=== PATIENT | female | born 1995 | race Caucasian/White ===

== ENCOUNTER → 2020-12-31 09:51 | Outpatient (CLI) | payer OTHER, SELFPAY ==
--- NOTE | 2020-12-31 10:03 | RAD_ITS ---
PROCEDURE: Upper GI with Small Bowel Follow Through DATE OF EXAMINATION: 12/31/2020. INDICATION: Female, 25 years old. Dyspepsia. Altered bowel function. FLUOROSCOPY TIME (if supplied): (1:54) minutes/seconds TECHNIQUE: Radiographic and fluoroscopic images of the distal esophagus, stomach, and entire small intestine were obtained following the oral ingestion of barium. COMPARISON: None. FINDINGS: The architectural administrative assistant film of the abdomen demonstrates a normal bowel gas pattern. There are no abnormal calcifications or organomegaly demonstrated. The visualized osseous structures are normal. A single contrast small bowel follow through exam demonstrates the small bowel to have no evidence for stricture, ulceration or mass. The transit time is normal at . RAD/Upper GI/w Small Bowel IMPRESSION: 1. Normal air contrast small bowel follow-through exam. Electronically Signed: Niraj Awan MD at 15:56 EDT , Service support ,
== END ==
PROVIDERS: PCP Internal Medicine; Referring Provider Nurse Practitioner Adult Health; Visit Provider Nurse Practitioner Adult Health
DX: R10.13 Epigastric pain (principal); R19.8 Other specified symptoms and signs involving the digestive system and abdomen
CPT/HCPCS: 74246; 74248

== ENCOUNTER 2024-12-27 08:00 | Outpatient (RCR) | payer OTHER, SELFPAY ==
--- NOTE | 2024-12-27 09:00 | BH.SGPN.GN ---
Behaviors/Verbalizations/Mental Status: [] Eye contact is good. Motor activity is appropriate. Appearance is casual. Speech is Appropriate. Mood is anxious. Affect is constricted. Thoughts are linear and logical. No evidence of psychosis. Reviewed daily check in sheet and no reports of suicidal ideations or intent. Client Response/Progress/Benefit: [] Pt first day of IOP tx, she was an active participant in group discussions. Attentive. Daily symptom tracker notes 2/5 for depression and 4/5 for anxiety. Did well to identify 2 mental health wins including being back home last night and out of the inpatient psych unit. Did not elaborate further on what led to hospitalization or seeking IOP tx. Pt identified an additional win as getting a good night?s sleep, explaining that she had difficulties sleeping while inpatient. Shared beliefs that lack of sleep may be contributing some to heightened levels of anxiety which is a current stressor. Benefited from group support, encouragement, and feedback. Will continue in IOP to prevent decompensation/re-admission to psych, promote mood stability, and increase healthy coping. Narrative Note: []
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
--- NOTE | 2024-12-27 11:10 | BH.SGPN.GN ---
Behaviors/Verbalizations/Mental Status: []Pt alert and oriented, casually dressed and groomed. Eye contact fair. Motor activity appropriate. Speech within normal limits. Affect congruent, mood euthymic. Thoughts linear, logical, no signs of hallucinations or delusions. Client Response/Progress/Benefit: [] Pt was an active participant AEB pt providing input and listening attentively to peers. Attentive during psychoeducation on mindfulness coping skills and their impact on reducing anxiety and improving overall mental health wellness. Group was able to identify self-soothing and mind-based coping skills which included: 5-senses, meditation, deep breathing, TIPP, thought challenging, categories, and progressive muscle relaxation. Pt also participated with peers in practicing mindfulness skills in session including deep breathing. Pt would like to work on belly breathing to manage anxiety. Appeared to benefit from increasing repertoire of anxiety reduction skills. Pt will continue IOP to improve daily functioning, increase healthy coping skills, and prevent decompensation.
[2024-12-27 11:39] VITALS: BP 122/72; PULSE 68
--- NOTE | 2024-12-27 12:10 | BH.MDN_ITS ---
Multi-Disciplinary Note Note 60-min Individual: Time Started:: 12:10 Date: 12/27/24 Purpose of session/treatment goals addressed:: Used the session to identify treatment plan goals and obtain psychosocial hx. Eye Contact:: Good Motor Activity:: Appropriate Appearance:: Casual Speech:: Appropriate Mood:: Anxious Affect:: Congruent Thoughts:: Linear, Logical and No evidence of hallucinations/delusions noted Staff Interventions:: rapport building, treatment planning and goal setting Client Response:: Pt states that while her first day in IOP was anxiety provoking overall she felt it went well. States it was what I expected and reports feeling more comfortable than she had this morning. Pt reports extensive hx of therapy. She has been with the same psychologist (Dr. Mcpherson) since age 15 whom she began seeing due to Bulimia. She is very knowledgeable about mental health diagnoses reporting possibly having mild autism, underlying trauma, ADHD, LAURI, and MDD. Also reports issues with sensory overload, hyperlexia, and experiencing very intense emotions. I get stuck in my emotions which can impact her for days and weeks. When asked about goals she states I want to better regulate my emotions and help identify when depression is creeping back in. Refer to pre-admission assessment, psychosocial, and psych eval for events that led to admission. Pt was admitted to psychiatric facility last week and discharged yesterday. Reports SI with plan and intent on 12/11/24 due in large part to psychosocial stressors. Currently reports moderate depression stating that she is getting back to her old self. Believes that admission was beneficial. Risks/Concerns:: Daily symptom tracker notes no suicidal ideations, plan, or intent. Hx of SI with plan/intent, however no hx of suicide attempts. Hx of self-injurious behaviors. Progress Toward Goals/Plan:: No progress noted as this was her first day in IOP. This is her second day out of psych unit. Presents today with somewhat of a flight into recovery reporting that she happy, has minimal depression, and is her old self despite still dealing with relationship conflict and psychosocial stressors which led to SI and hospitalization. Will continue to monitor daily symptom tracker for SI. Completed [place] [facility] Scre[facility] this AM. Reports last SI was on 12/11/24. Will be admitted to [facility] level of care to maintain safety, prevent decompensation, and improve functioning to return to work. Time Stopped:: 13:00
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
--- NOTE | 2024-12-27 13:05 | BH.DR.ITP ---
Initial Treatment Plan Patient Information Visit Information: ADMISSION DATE: EXPECTED LOS: 4-6 weeks Problems/Symptoms Problem #1:: Depression Symptom:: Sadness, hopelessness, worthlessness, guilt, low energy, passive thoughts of , recent suicidal ideation and self-harm. Problem #2:: Anxiety Symptom:: Worry, rumination, panic attacks
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
--- NOTE | 2024-12-27 16:36 | BH.MTP ---
Master Treatment Plan Patient Information Program Physician:: Mirna Doshi Primary Therapist:: Francois Garza Psychiatric Diagnoses Psychiatric Diagnoses:: 1. Major depressive disorder, recurrent, severe without psychosis 2. Generalized anxiety disorder Diagnosis Code(s):: F33.2 Estimated LOS Estimated LOS (in weeks):: 8 Problem/Goal #1 Problem/Goal #1 Stated Goal:: Client will reduce depressive symptoms, worthlessness, lack of concentration, suicidal ideations, survival ambivalence, self-harm, and hopelessness associated with major depressive disorder AEB self-report as well as reduction of scores on the DSM-5 domain scores for SI and depression. Description of Barriers: Psychosocial stressors, complicated current relationship with GF, mood instability for 3 years, limited coping strategies. Functional Impact: Recent psychiatric admission due to SI with methods, currently off work due to mental health, self-injurious behaviors, Goal Relevant Strengths/Supports: outgoing, strong family support, optimistic, and appears motivated. Objectives Objective #1: Stated Objective: Client will work with therapist to develop a concrete ?crisis plan? or emotional dysregulation plan to implement during depressive episodes or acute events which includes emergency telephone numbers, internal/external coping strategies for SI/overwhelming emotions, lists of supports, warning signs, positive aspects of life, and motivations Interventions: Client will work with therapist to develop a ?crisis plan? or emotional dysregulation plan which includes emergency telephone numbers, internal/external coping strategies for SI/overwhelming emotions, lists of supports, warning signs, positive aspects of life, and motivations Discharge Criteria: Complete emotional dysregulation plan. Target Date: 02/21/25 Review Date: 01/17/25 Objective #2: Stated Objective: Client will identify 2-3 cognitive distortions that lead to mood dysregulation and learn 2-3 ways to manage these thoughts to improve mood stability. Interventions: Through individual and group counseling will assist client in identifying, challenging, and replacing dysfunctional thoughts with positive, more realistic thoughts. Will provide education on CBT and DBT techniques to help client gain awareness of thinking errors and learn how to more effectively handle negative thoughts that reinforce unhealthy coping skills. Discharge Criteria: Able to identify and challenge commonly used cognitive distortions. Target Date: 02/21/25 Review Date: 01/17/25 Problem/Goal #2 Problem/Goal #2 Stated Goal:: Client will reduce overall frequency, intensity, and duration of anxiety to improve functioning AEB self-reports and reduction of score on the anxiety and anger domains of the DSM outcomes. Description of Barriers: Psychosocial stressors, complicated current relationship with GF, mood instability for 3 years, limited coping strategies, unmedicated ADHD, possible mild Autism, hx of trauma. Functional Impact: Recent psychiatric admission due to mental health decompensation, frequent panic attacks, ruminations, Goal Relevant Strengths/Supports: outgoing, strong family support, optimistic, and appears motivated. Objectives Objective #1: Stated Objective: Client will identify 2-3 anxiety/panic triggers and 2 coping skills to use when feeling anxious to manage anxiety as shown by decreasing her DSM-5 scores for anxiety. Interventions: Through individual and group counseling will teach client coping skills to improve emotional regulation, mindfulness, and distress tolerance to help client cope with anxiety in the moment. Discharge Criteria: Identify 2-3 triggers and 2-3 coping strategies to manage panic attacks/anxiety. Target Date: 02/21/25 Review Date: 01/17/25
--- NOTE | 2024-12-28 09:05 | BH.SGPN.GN ---
Behaviors/Verbalizations/Mental Status: [] Pt alert and oriented, neatly dressed and groomed. Eye contact good. Motor activity appropriate. Speech within normal limits. Affect congruent, mood anxious. Thoughts linear, logical, no signs of hallucinations or delusions. Reviewed pt?s symptom tracker, no risk for suicidal ideation, plan, or intent 12/28/24. Client Response/Progress/Benefit: []Pt was an active participant in group discussions. Attentive. Able to identify mental health wins including pt started organizing her room, helped her parents, and talked with a friend. Pt's stressor today is my dreams have been really stressful. Pt stated feeling a little less anxious this morning as pt feels getting used to group is helpful. Pt receptive to feedback from peers which pt reported was helpful. Progress noted. Benefited from group support, encouragement, and feedback. Will continue in IOP to prevent decompensation, improve daily functioning, and gain healthy coping skills. Narrative Note: []
--- NOTE | 2024-12-28 10:15 | BH.SGPN.GN ---
Behaviors/Verbalizations/Mental Status: [] Eye contact is good. Motor activity is appropriate. Appearance is casual. Speech is Appropriate. Mood is anxious and depressed. Affect is congruent. Thoughts are linear and logical. No evidence of psychosis Client Response/Progress/Benefit: [] Pt engaged in session AEB listening attentively to others and providing input throughout. Pt engaged in activity, able to connect how it can be uncomfortable and difficult to practice acceptance when situations are out of one?s own control. Worked with peer group to define acceptance and identify the benefits that acceptance can bring. Benefits included; reduce stuckness, reduced stress, helps one to focus on situations we can change, and decreased negative self-talk. Seemed to benefit from increased awareness of the meaning as well as the importance of acceptance. Will continue in IOP to prevent decompensation/re-admission to psych unit, maintain safety, increase healthy coping, and improve functioning to return to work. Narrative Note: []
--- NOTE | 2024-12-28 11:15 | BH.SGPN.GN ---
Behaviors/Verbalizations/Mental Status: []Pt alert and oriented, casually dressed and groomed. Eye contact fair. Motor activity appropriate. Speech within normal limits. Affect congruent, mood depressed and anxious. Thoughts linear, logical, no signs of hallucinations or delusions. Client Response/Progress/Benefit: [] Pt responded well to session AEB taking notes and contributing to discussion throughout. Pt engaged as group continued discussion on acceptance and the mental health benefits of practicing acceptance. Pt and peers identified what makes acceptance challenging and pt completed a self-reflection exercise on what is hard to accept in pt's life. Pt identified something that is currently hard to accept other's expectations of you. Client stated by not accepting this it leads to feeling not good enough. Group identified strategies to increase acceptance. Pt noted wanting to work on focusing on self-compassion. Pt appeared to benefit from gaining insight and learning strategies to increase acceptance. Pt will continue IOP tx to improve view of self, increase mood stability, and prevent decompensation. Narrative Note: []
--- NOTE | 2025-01-01 09:05 | BH.SGPN.GN ---
Behaviors/Verbalizations/Mental Status: [] Eye contact is good. Motor activity is appropriate. Appearance is casual. Speech is Appropriate. Mood is anxious. Affect is congruent. Thoughts are linear and logical. No evidence of psychosis. Reviewed daily check in sheet and no reports of suicidal ideations or intent. Client Response/Progress/Benefit: [] Pt participated at times during the group discussion. Attentive. Shared that she ?cooked over the weekend? Elaborated on why this was a mental health win for her. ?Cooking means that I?m in a good headspace?. Utilizing opposite-action and ?opened up with? support over the weekend. Feeling hopeful. She also shared medication side effects. ?feels wrong?. Reports increased anxiety, heart racing, and restlessness with no trigger. She decided to stop the medication. Therapist will contact program psychiatrist after group. Progress noted. Benefited from group support, encouragement, and feedback. Will continue in IOP to maintain safety, prevent re-admission to psych unit, and improve functioning to return to work. Narrative Note: []
--- NOTE | 2025-01-01 11:05 | BH.SGPN.GN ---
Behaviors/Verbalizations/Mental Status: []Eye contact is good. Motor activity is appropriate. Appearance is casual. Speech is Appropriate. Mood is anxious. Affect is congruent. Thoughts are linear and logical. No evidence of psychosis. Client Response/Progress/Benefit: []Pt was an active participant in group discussion. Engaged and attentive during psychoeducation and interactive discussion on coping skills, why people use unhealthy coping skills, how to replace unhealthy coping skills, and internal vs external coping skills. Attentive as peers came up with list of unhealthy coping skills. Pt reported personally, they tend to either isolate or over think, though often both occur. Group discussed the effects of maladaptive coping skills on mental health. Benefited from increased understanding of unhealthy coping skills and the need for developing healthy internal and external coping skills. Actively participated during experiential group activity and was able to related this activity to group topic. Will continue in IOP to promote healthy thinking patterns, apply healthy coping skills, and promote mood stability. Narrative Note: []
--- NOTE | 2025-01-01 11:15 | BH.SGPN.GN ---
Behaviors/Verbalizations/Mental Status: []Pt alert and oriented, casually dressed and groomed. Eye contact good. Motor activity appropriate. Speech within normal limits. Affect congruent, mood depressed. Thoughts linear, logical, no signs of hallucinations or delusions. Client Response/Progress/Benefit: [] Pt responded well to session, taking notes and contributing when prompted. Group discussed the different categories of coping skills which included distraction, emotional release, grounding, self-love, and thought challenging. Pt participated in creating a coping skills ?menu? from the different categories of coping skills. Pt's coping skill menu included: crying, verbally telling her negative thoughts to stop, and developing a more consistent routine. Appeared to benefit from increasing their repertoire of healthy coping skills. Will continue IOP to prevent decompensation, improve daily functioning, and reduce isolation. Narrative Note: []
--- NOTE | 2025-01-01 11:38 | BH.COMM ---
Communication Note Communication with Client Communication Note: Pt reported side effects to Wellbutrin which included heart racing, restlessness, sleep issues, and overall increased anxiety which she attributes to her Wellbutrin. I can't identify any other reasons . She reports that she made a decision over the weekend to stop taking the medication. Last use was on Wednesday. No side effects reported. According to patient she is taking Wellbutrin XL 150mg daily since 12/19/24. She has taken this for a total of 12 days. Concern due to suddenly stopping the medication and staff reached out to Dr. Doshi. Based on the dose and duration of use (12 days) Dr. Francis stated that pt could stop the medication as she wished. Encouraged her to inform staff of any mood or somatic changes.
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
--- NOTE | 2025-01-02 10:15 | BH.SGPN.GN ---
Behaviors/Verbalizations/Mental Status: [] Eye contact is good. Motor activity is appropriate. Appearance is casual. Speech is Appropriate. Mood is content. Affect is congruent. Thoughts are linear and logical. No evidence of psychosis. Client Response/Progress/Benefit: [] Pt was an active participant in group discussions. Attentive during psychoeducation on the 4 communication styles (Passive, Passive-Aggressive, Aggressive, and Assertive) and the obstacles to effective communication. Contributed during interactive discussion on the benefits of communicating effectively and provided examples. Worked well with peers to identify the benefits and disadvantages to the different communication styles. Benefited from increased understanding of communication styles and how these can impact effective communication. Will continue in IOP to prevent decompensation, improve healthy communication within current relationships, and improve daily functioning. Narrative Note: []
--- NOTE | 2025-01-02 11:15 | BH.SGPN.GN ---
Behaviors/Verbalizations/Mental Status: []Pt alert and oriented, casually dressed and groomed. Eye contact good. Motor activity appropriate. Speech within normal limits. Affect congruent, mood euthymic. Thoughts linear, logical, no signs of hallucinations or delusions. Client Response/Progress/Benefit: [] Pt responded well to session AEB Pt listening attentively to others and providing input during group discussion on the pay offs and costs of the different communication styles. Pt able to connect how current communication style impacts mental health. Connected with peers? comments about importance of using assertive communication. Pt seemed to benefit from increasing awareness of healthy strategies to improve communication. Client engaged in practicing use of assertive communication. Will continue IOP tx to promote healthy coping skills, challenge negative thoughts, and improve boundary setting.?
--- NOTE | 2025-01-03 09:00 | BH.SGPN.GN ---
Behaviors/Verbalizations/Mental Status: [] Eye contact is good. Motor activity is appropriate. Appearance is casual. Speech is Appropriate. Mood is anxious and content. Affect is congruent. Thoughts are linear and logical. No evidence of psychosis. Reviewed daily check in sheet and no reports of suicidal ideations or intent. Client Response/Progress/Benefit: [] Pt was an active participant in group discussions. Attentive. Daily symptom tracker notes 0-1/5 for depression and 1-2/5 for anxiety. Did well to identify 2 mental health wins including being able to process and express uncomfortable emotions regarding her relationship rather than minimize. Reports journaling as a result. Additional win identified as plans to discuss these emotions with her partner later today following a session with her individual therapist. Noted this is also a stressor but one she feels prepared to address. Benefited from group support, encouragement, and feedback. Will continue in IOP to prevent decompensation, promote mood stability, and increase healthy coping. Narrative Note: []
--- NOTE | 2025-01-03 10:10 | BH.SGPN.GN ---
Behaviors/Verbalizations/Mental Status: [] Client Response/Progress/Benefit: [] Narrative Note: []
--- NOTE | 2025-01-03 11:10 | BH.SGPN.GN ---
Behaviors/Verbalizations/Mental Status: []Pt alert and oriented, casually dressed and groomed. Eye contact good. Motor activity appropriate. Speech within normal limits. Affect congruent, mood content. Thoughts linear, logical, no signs of hallucinations or delusions. Client Response/Progress/Benefit: [] Pt was an active participant during activity and discussion. Pt did well to remain attentive and participate as group worked on identifying characteristics and benefits of adopting a growth mindset. Worked with fellow participants in reframing the example fixed thoughts into growth mindset thoughts. Pt worked on changing own fixed thought and reframed the thought to ?it?s possible to be fully loved through all my emotions, including by myself.? Pt also wants to work on using dialectical thinking. Pt appeared to benefit from challenging own thoughts and engaging in the activity. Pt will continue IOP tx to prevent decompensation, improve daily functioning, and reduce negative thinking patterns. ??? Narrative Note: []
--- NOTE | 2025-01-09 10:10 | BH.SGPN.GN ---
Behaviors/Verbalizations/Mental Status: [] Eye contact is good. Motor activity is appropriate. Appearance is casual. Speech is Appropriate. Mood is anxious and dysthymic. Affect is congruent. Thoughts are linear and logical. No evidence of psychosis. Client Response/Progress/Benefit: [] Pt was an active participant during group discussions and group activities. This portion of group was very psychoeducation heavy and pt was attentive during psychoeducation. Engaged during activity in which they identified which type of foods (i.e. carbs, sugar, salt, fast food, caffeine, etc) they seek out when sad, tired, angry, stressed, anxious, etc. Pt was able to identify the impact that certain foods have on their mental health through group example which was beneficial. Benefited from increased awareness of the connection between nutrition and mental health. Will continue in IOP to prevent decompensation, decrease anxiety, improve healthy coping, and improve functioning to return to work. Narrative Note: []
--- NOTE | 2025-01-09 11:15 | BH.SGPN.GN ---
Behaviors/Verbalizations/Mental Status: []Pt alert and oriented, casually dressed and groomed. Eye contact good. Motor activity appropriate. Speech within normal limits. Affect congruent, mood content. Thoughts linear, logical, no signs of hallucinations or delusions. Client Response/Progress/Benefit: [] Pt was an active participant during group discussions and group activities. This portion of group was very psychoeducation heavy and pt was attentive during psychoeducation. Engaged during activity in which they identified their own maintenance cycles with food and how it impacts their mental health symptoms. Pt and peers identified barriers to breaking these cycles as well as ways to combat barriers. Pt stated one barrier she used to have was using eating as self-soothing, so pt has worked to make ?eating the main event.? Pt shared it helps her be more mindful. Benefited from increased awareness of the connection between nutrition and mental health and from identifying strategies. Will continue in IOP to promote use of healthy coping skills, challenge distortions, and increase self-confidence. Narrative Note: []
--- NOTE | 2025-01-10 09:05 | BH.SGPN.GN ---
Behaviors/Verbalizations/Mental Status: [] Eye contact is good. Motor activity is appropriate. Appearance is casual. Speech is Appropriate. Mood is anxious. Affect is congruent. Thoughts are linear and logical. No evidence of psychosis. Reviewed daily check in sheet and no reports of suicidal ideations or intent Client Response/Progress/Benefit: [] Pt was an active participant in group discussions. Attentive. She discussed participating in a social event, utilizing skills, and being more assertive this week. Feeling ?hopeful?. Progress noted. Benefited from group support, encouragement, and feedback. Will continue in IOP to prevent decompensation/re-admission to psych unit, maintain safety, and improve functioning to return to work. Narrative Note: []
--- NOTE | 2025-01-10 10:15 | BH.SGPN.GN ---
Behaviors/Verbalizations/Mental Status: [] Eye contact is fair. Motor activity is appropriate. Appearance is disheveled. Speech is Appropriate. Mood is depressed. Affect is constricted. Thoughts are linear and logical. No evidence of psychosis. Client Response/Progress/Benefit: [] Pt was an active participant during interactive group discussions. Along with peers contributed to interactive discussion on defining what a boundary is in mental health. Pt along with peers identified challenges and benefits to setting boundaries. Attentive during psychoeducation on types of boundaries (rigid, porous, flexible). Pt benefited from increased awareness and insight on the importance/benefit to setting health boundaries. Will continue in IOP to promote use of healthy coping skills, prevent decompensation/re-admission to psych unit, and improve functioning to return to work. Narrative Note: []
--- NOTE | 2025-01-10 11:15 | BH.SGPN.GN ---
Behaviors/Verbalizations/Mental Status: [] Eye contact is good. Motor activity is appropriate. Appearance is casual. Speech is Appropriate. Mood is euthymic. Affect is congruent. Thoughts are linear and logical. No evidence of psychosis. Client Response/Progress/Benefit: [] Client responded well to session AEB listening attentively to peers, providing input, as well as taking notes throughout. Group discussed different styles of boundary setting. Reports connecting most with porous style of boundary setting. Shared she often allows others to monopolize her time and doesn't set a boundary with others. Participated in small group discussion brainstorming various strategies for improving healthy boundary setting. Pt took time to complete reflection on which skills would like to implement to improve boundaries. Seemed to benefit from increased awareness of how different boundary styles can impact mental health. Will continue IOP tx to improve confidence, challenge distortions, and prevent decompensation.
--- NOTE | 2025-01-10 12:43 | PCM.BH.PN_ITS ---
Progress Note Progress Note: History of Present Illness/Interim History: The patient is a 29-year-old female with a history of depression, anxiety, autism, ADHD and substance use disorder who is seen in follow-up at the [facility] behavioral health IOP. Patient was last seen 2 weeks ago and no medication changes were made at that time. Patient discontinued Wellbutrin XL after last visit as she had side effects on it. She feels that since discontinuing the Wellbutrin 2 weeks ago her anxiety is less and she feels better able to function during the day. She remains somewhat depressed with a little improvement but still has occasional hopelessness. She is anxious about having to go back to work again and has a m eeting with her boss on January 15, 2025 to discuss when she returns to work. She saw Dr. Burt yesterday and antidepressant was added. She denies thoughts of passive thoughts of , suicidal ideation, plan for suicide, thoughts of self-harm, hallucinations or delusions and remains sober from drug or alcohol use. Current Psychiatric Medications: [] BuSpar 5 mg p.o. twice daily; Seroquel 50 mg p.o. as needed; Wellbutrin XL discontinued 2 weeks ago due to side effects of increased anxiety. Cymbalta 30 mg p.o. daily added yesterday and she is to start it today. Mental Status Examination: [] The patient is a 29-year-old female who appears younger than stated age and is casually groomed with good hygiene. She is ambulatory with a normal gait and has no psychomotor agitation or retardation. Eye contact is good and speech is normal rate and rhythm and fluent with no pressure. Mood is depressed and anxious. Affect is full and normal. Thought process is goal-directed but overinclusive. Thought content: There is no evidence of passive thoughts of , suicidal ideation, plan for suicide, homicidal ideation, hallucinations or delusions. Reality testing is intact. Intelligence is average. Judgment is intact. Insight is fair. Impulsivity is moderate. Diagnoses: [] 1. Major depressive disorder, recurrent, severe without psychosis 2. Generalized anxiety disorder 3. Strong cluster B traits 4. Primary support issues Plan: [] The patient will continue the IOP at [facility] as the structure, support, education and group therapy will hopefully parent work prevent worsening of the patient's symptoms. No medication changes were made today as they were changed yesterday by outpatient provider. She will continue to follow-up with her outpatient providers and I will see the patient in follow- up in 2 weeks.
--- NOTE | 2025-01-11 09:00 | BH.SGPN.GN ---
Behaviors/Verbalizations/Mental Status: []Pt alert and oriented, casually dressed and groomed. Eye contact good. Motor activity appropriate. Speech within normal limits. Affect congruent, mood calm. Thoughts linear, logical, no signs of hallucinations or delusions. Reviewed pt?s symptom tracker, no risk for suicidal ideation, plan, or intent 01/01/25. Client Response/Progress/Benefit: []Pt was an active participant in group discussions. Attentive. Able to identify mental health wins including going out to dinner with her family and setting a boundary with a friend yesterday. Pt's stressor today is I used to be so consistent with hygiene and now I'm not. Pt stated feeling hopeful this morning as pt is seeing progress, but she also acknowledges struggling with hygiene. Pt receptive to feedback and emotional support from peers which pt reported was helpful. Progress noted. Benefited from group support, encouragement, and feedback. Will continue in IOP to promote use of healthy coping skills, improve distress tolerance skills, and reduce negative thinking. Narrative Note: []
--- NOTE | 2025-01-11 10:15 | BH.SGPN.GN ---
Behaviors/Verbalizations/Mental Status: []Pt alert and oriented, casually dressed and groomed. Eye contact good. Motor activity appropriate. Speech within normal limits. Affect congruent, mood content. Thoughts linear, logical, no signs of hallucinations or delusions. Client Response/Progress/Benefit: [] Pt receptive to session AEB contributing to group discussion, as well as listening attentively to others, and taking notes. Worked with group to brainstorm the positive and negative aspects of stress on physical and mental health as well as the impact of distress on performance, relationships, and mental health. Pt shared their current personal top stressors to be: finances, interpersonal relationships, and managing her mental health. Shared when feeling overwhelmed with stress pt tends to shut down or distract. Benefited from increased awareness of positive and negative stress as well as how stress impact individuals. Will continue in IOP to prevent decompensation, increase healthy communication with supports, and improve dialectical thinking. Narrative Note: []
--- NOTE | 2025-01-11 11:15 | BH.SGPN.GN ---
Behaviors/Verbalizations/Mental Status: [] Pt alert and oriented, casually dressed and groomed. Eye contact good. Motor activity appropriate. Speech within normal limits. Affect full, mood euthymic. Thoughts linear, logical, no signs of hallucinations or delusions. Client Response/Progress/Benefit: [] Pt receptive to session AEB contributing to group discussion, as well as listening attentively to others, and taking notes. Worked with group to brainstorm the positive and negative aspects of stress on physical and mental health as well as the impact of stress on performance, relationships, and mental health. Pt shared their top stressors and strategies that could be helpful to her. Benefited from increased awareness of positive and negative stress as well as how stress impact individuals. Will continue in IOP to prevent decompensation/re-admission to psych unit, increase healthy coping, maintain safety, and improve functioning to return to work. Narrative Note: []
--- NOTE | 2025-01-12 09:05 | BH.SGPN.GN ---
Behaviors/Verbalizations/Mental Status: [] Eye contact is good. Motor activity is appropriate. Appearance is casual. Speech is Appropriate. Mood is anxious. Affect is congruent. Thoughts are linear and logical. No evidence of psychosis. Reviewed daily check in sheet and no reports of suicidal ideations or intent. Client Response/Progress/Benefit: [] Pt was an active participant in group discussions. Attentive. ? Its been an overall positive week?. Reports she is ?initiating difficult conversations? rather than avoiding which has decreased his anxiety and ruminating. She elaborated on a few communication and organizational strategies which have been effective. She plans on taking this weekend to relax, however points out its not a week to isolation. Progress noted. Benefited from group support, encouragement, and feedback. Will continue in IOP to maintain safety, prevent decompensation/re-admission to psych unit, and improve functioning to return to work. Narrative Note: []
--- NOTE | 2025-01-12 10:15 | BH.SGPN.GN ---
Behaviors/Verbalizations/Mental Status: []Eye contact is good. Motor activity is appropriate. Appearance is casual. Speech is Appropriate. Mood is euthymic. Affect is congruent. Thoughts are linear and logical. No evidence of psychosis. Client Response/Progress/Benefit: [] Pt receptive to session AEB listening attentively to others and taking notes. Pt attentive and contributed throughout psychoeducation on the cognitive triangle and maintenance cycles. Pt engaged during group discussion reviewing the impact of daily activities and behaviors in either reinforcing unhealthy maintenance cycles and depression or assisting in reducing symptoms (?down? vs ?up? activities). Pt participated during interactive discussion in which pt identified common up activities (being around family, showering, walks, music, meditation, talking to supports) and down activities (isolation, not showering, and not changing out of Pjs.) Appeared to benefit from increased awareness of current behaviors and impact these have on mental health. Will continue IOP to promote mood stability, reduce negative thinking patterns, and reduce avoidance. ?? Narrative Note: []
--- NOTE | 2025-01-12 11:15 | BH.SGPN.GN ---
Behaviors/Verbalizations/Mental Status: []Pt alert and oriented, casually dressed and groomed. Eye contact good. Motor activity appropriate. Speech within normal limits. Affect congruent, mood euthymic. Thoughts linear, logical, no signs of hallucinations or delusions. Client Response/Progress/Benefit: [] Pt responded well to session, attentive and engaged in group discussions and activity. Actively engaged in continued discussion about up activities and down activities. Client stated up activities would like to practice to include: keeping up with personal hygiene, exercise, cooking at home, decluttering/cleaning/organizing. Active participant as group discussed values and the benefits that knowing one's values can have on one's mental health. Benefited from increased awareness of their up activities and how incorporating their values into behavioral activation goals can positively impact mental health. Will continue in IOP to prevent decompensation, improve boundary setting, and increase confidence.
--- NOTE | 2025-01-12 12:10 | BH.MDN ---
Multi-Disciplinary Note Note 60-min Individual: Time Started:: 12:10 Date: 01/12/25 Purpose of session/treatment goals addressed:: Reviewed current symptoms and progress. Addressed treatment plan goal 1 (obj 2) and goal 2 (obj 1). Eye Contact:: Fair Motor Activity:: Appropriate Appearance:: Casual Speech:: Appropriate Mood:: Anxious Affect:: Congruent Thoughts:: Linear, Logical and No evidence of hallucinations/delusions noted Staff Interventions:: psychoeducation on: (cognitive distortions), rapport building and other (identified anxiety triggers regarding work and developed return to work strategies to minimize distress) Client Response:: Pt shared that overall she has done well this week. According to pt she initiated three difficulty conversations this week in which she was assertive about her thoughts and needs. Proud that she did not avoid the conversations. She developed a new strategy for approaching these conversations. Currently writing and organizing her main thoughts prior too conversation therefore she feels better prepared. Being in anxiety producing situations often leads to feeling overwhelmed and overstimulated impacting her ability to organize her thoughts. Feeling accomplished. She is anxious about returning to work and used the session to identify anxiety/stress triggers at work (trouble prioritizing tasks, feeling frustrated when she can't complete a task, and limited guidance). Based on these triggers worked with therapist to develop strategies to minimize (daily huddles with boss, asking for clarification/guidance on prioritizing, and creating a to-do list at the end of the day). Risks/Concerns:: No risks or concerns noted. Progress Toward Goals/Plan:: Consistent and engaged in IOP. Progress noted per pt report. She was started on a new anti-depressant this week and has been consistent with IOP and outside counseling. Improved communication skills and appears to be implementing healthy coping strategies. She is also re-evaluating her relationship with her GF (which was trigger to worsening depression) and plans to distance herself as she feels that the relationship is not healthy. It has currently been 2 weeks since her hospitalization and she reports overall improved mood, improved relationship with her family, and plans to return to work on 01/19/25. I'm not as bad as I was. Will continue in IOP to prevent decompensation, stabilize mood, increase healthy coping, and improve functioning. Time Stopped:: 13:00
--- NOTE | 2025-01-15 09:05 | BH.SGPN.GN ---
Behaviors/Verbalizations/Mental Status: [] Eye contact is good. Motor activity is appropriate. Appearance is casual. Speech is Appropriate. Mood is anxious. Affect is congruent. Thoughts are linear and logical. No evidence of psychosis. Reviewed daily check in sheet and no reports of suicidal ideations or intent. Client Response/Progress/Benefit: [] Pt was an active participant in group discussions. Attentive. Shared that she made as decision to ?stay in over the weekend? stating ?I needed too?. Insight that she needed to utilize this weekend for self-care and ?recharging? and didn?t force herself to make plans or commitments. ?I feel more peaceful and rested?. She is meeting with her employer today to discuss returning back to work. She feels prepared stating she feels ?anxious and hopeful?. Progress noted. Benefited from group support, encouragement, and feedback. Will continue in IOP to prevent decompensation/re-admission to psych unit, increase healthy coping, and improve functioning to return to work. Narrative Note: []
--- NOTE | 2025-01-15 10:10 | BH.SGPN.GN ---
Behaviors/Verbalizations/Mental Status: [] Client alert and oriented, casual appearance. Eye contact good. Motor activity appropriate. Speech within normal limits. Affect congruent, mood euthymic. Thoughts linear, logical, no signs of hallucinations or delusions. Client Response/Progress/Benefit: []Client engaged participant during group session as evidenced by contributions during group discussions, appearing to listen to others, and taking notes. Client engaged in discussion about barriers that keep people from having difficult confrontations. Group identified potential consequences to avoiding difficult conversations are resentment, increased anxiety, needs not met, increased conflict, and negative thoughts. Client appeared attentive during psychoeducation about techniques and skills to help have crucial conversations. Client seemed to benefit from increased awareness and education about importance of having difficult conversations and recognizing the impact of avoiding such conversations. Client to continue IOP to maintain boundaries, increase confidence, and promote use of healthy coping skills.
--- NOTE | 2025-01-15 11:15 | BH.SGPN.GN ---
Behaviors/Verbalizations/Mental Status: []Pt alert and oriented, neatly dressed and groomed. Eye contact good. Motor activity appropriate. Speech within normal limits. Affect congruent, mood euthymic and anxious. Thoughts linear, logical, no signs of hallucinations or delusions. Client Response/Progress/Benefit: [] Pt was an active participant, engaged in activities and discussion. Pt able to identify ways they negatively contribute to crucial conversations and pt was engaged during psychoeducation of the different ways to build interpersonal effectiveness skills. Pt and peers practiced mirroring and active listening in partners. Group reviewed [employer] and used the handout to help map out how they would like a crucial conversation in their life to go. Pt identified a conversation pt needs to have with her employer about wanting to work part-time. Pt practiced I-statements and identified ways she could appear confident and assertive. Pt appeared to benefit from learning and practicing interpersonal effectiveness skills. Pt will continue IOP tx to promote mood stability, improve self-confidence, and reduce avoidance. ? Narrative Note: []
== END 2025-01-15 23:59 ==
LOC: BHIOP 08:00
PROVIDERS: PCP Internal Medicine; Referring Provider Psychiatry & Neurology Psychiatry; Visit Provider Psychiatry & Neurology Psychiatry
DX: F33.2 Major depressive disorder, recurrent severe without psychotic features (principal); F41.1 Generalized anxiety disorder
CPT/HCPCS: S9480; 90837; 90853

== ENCOUNTER 2025-01-16 07:09 | Outpatient (RCR) | payer OTHER, SELFPAY ==
[2025-01-16 00:33] VITALS: BP 122/72; PULSE 68
== END 2025-02-14 23:59 ==
LOC: BHIOP 07:09
PROVIDERS: PCP Internal Medicine; Referring Provider Psychiatry & Neurology Psychiatry; Visit Provider Psychiatry & Neurology Psychiatry
DX: F33.2 Major depressive disorder, recurrent severe without psychotic features (principal); F41.1 Generalized anxiety disorder
CPT/HCPCS: S9480; 90834; 90853

== ENCOUNTER 2025-02-15 07:33 | Outpatient (RCR) | payer OTHER, SELFPAY ==
[2025-02-15 00:33] VITALS: BP 122/72; PULSE 68
== END 2025-03-01 12:16 | disposition home or self-care (01) ==
LOC: BHIOP 07:33
PROVIDERS: PCP Internal Medicine; Referring Provider Psychiatry & Neurology Psychiatry; Visit Provider Psychiatry & Neurology Psychiatry
DX: F33.2 Major depressive disorder, recurrent severe without psychotic features (principal); F41.1 Generalized anxiety disorder
CPT/HCPCS: S9480; 90832; 90837; 90853

== ENCOUNTER 2025-03-08 12:00 | Outpatient (RCR) | payer OTHER, SELFPAY | END 2025-03-17 23:59 | LOC: BHOG 12:00 | PROVIDERS: PCP Internal Medicine; Referring Provider Psychiatry & Neurology Psychiatry; Visit Provider Psychiatry & Neurology Psychiatry | DX: F33.1 Major depressive disorder, recurrent, moderate (principal); F41.1 Generalized anxiety disorder | CPT/HCPCS: 90853 ==

== ENCOUNTER 2025-03-19 07:26 | Outpatient (RCR) | payer OTHER, SELFPAY ==
--- NOTE | 2025-03-15 15:35 | BH.SGPN.GN ---
Behaviors/Verbalizations/Mental Status: []Client alert and oriented, casually dressed and groomed. Eye contact good. Motor activity appropriate. Speech within normal limits. Affect congruent, mood euthymic. Thoughts linear, logical, no signs of hallucinations or delusions. Client Response/Progress/Benefit: []Pt responded well to session AEB sharing and listening attentively to others. Pt reports following up with therapy and pt reports she is taking her medications consistently. Pt stated using challenging inappropriate guilt, opposite action, exercise, grounding, and DDD as primary coping skills used this past week. Pt participated in group discussion defining vulnerability, how and why we avoid it, and the benefits. Pt was an active participant and provided personal examples of being vulnerable and the positive things that came with this. Pt stated that pt would like to work on being vulnerable this week by challenging herself to do something she knows she will not be "perfect" but doing it anyway. Will continue aftercare treatment to reinforce healthy coping skills and promote gains. Narrative Note: []
--- NOTE | 2025-03-29 15:48 | BH.MTP_ITS ---
Treatment Plan Review Demographics Date of Admission:: 03/08/25 Date of Treatment Plan Review:: 03/29/25 Admitting Diagnoses:: MDD, recurrent, moderate; LAURI Current Diagnoses:: MDD, recurrent, moderate; LAURI Patient Status Patient's Response to Treatment:: Pt responding well to treatment AEB pt's consistent attendance, active engagement in group discussions, follow up with outpatient providers, and reporting use of skills outside treatment environment. Pt utilizes IOP aftercare to process current stressors, maintain boundaries with supports, practice giving herself credit for daily accomplishments, continuing to work on challenging negative core beliefs and unrealistic expectations of self, and identify more adaptive coping strategies. Status of Current Problems and Symptoms: Ongoing stressors include maintaining progress made in IOP, stress with maintaining boundaries, managing her emotions, and continuing to utilize skills consistently. Pt self-reports she has moments of negative thinking, anxious thoughts, and depression but is better able to manage her symptoms. Progress Problem #1: Problem Name:: Pt will maintain or decrease symptoms from IOP admission data. Status of Goals:: Obj 1 - progress noted, ongoing work encouraged- Pt has been able to maintain overall mental health progress made in IOP as pt’s DSM-5 scores are 36% lower than they were at IOP admission. 12% decrease in anxiety when compared to IOP admission scores. Pt's depression score at IOP admission was a 3/8, with 8 being severe and at review her depression shows slight increase AEB score of 4/8 for depression category. Obj 2 - complete with ongoing work encouraged. Pt has been consistently reporting self-care, thought challenging, boundary setting, gratitude, and using healthy coping skills. She struggles at times with recognizing and challenging negative thoughts and anx ious symptoms. Team Recommendations:: Recommended client continue IOP aftercare group to show maintenance of progress. Will continue to encourage client to attend regular outpatient counseling and psychiatry appointments as well.
--- NOTE | 2025-04-05 14:00 | BH.SGPN.GN ---
Behaviors/Verbalizations/Mental Status: []Pt alert and oriented, casually dressed and groomed. Eye contact good. Motor activity appropriate. Speech within normal limits. Affect congruent, mood stressed. Thoughts linear, logical, no signs of hallucinations or delusions. Client Response/Progress/Benefit: [] Pt receptive of session, engaged throughout. Pt has been reporting utilizing healthy coping skills outside of aftercare. Pt saw her outpatient psychiatrist this week and she has been taking her medications consistently. These skills included: guided imagery, giving herself credit, making time for hobbies, self-soothing, and journaling. Receptive of discussion on distress tolerance and emotional urges. Pt contributed to the discussion of distress tolerance and how building distress tolerance can help improve mood stability and resilience. Pt wants to keep building distress tolerance by practicing gómez mind. Pt seemed to benefit from support from peers and increasing understanding of distress tolerance. Will continue IOP aftercare to promote mood stability and reinforce healthy coping skills. Narrative Note: []
== END 2025-04-16 23:59 ==
LOC: BHOG 07:26
PROVIDERS: PCP Internal Medicine; Referring Provider Psychiatry & Neurology Psychiatry; Visit Provider Psychiatry & Neurology Psychiatry
DX: F33.1 Major depressive disorder, recurrent, moderate (principal); F41.1 Generalized anxiety disorder
CPT/HCPCS: 90853

== ENCOUNTER 2025-04-17 07:13 | Outpatient (RCR) | payer OTHER, SELFPAY ==
--- NOTE | 2025-04-19 14:00 | BH.SGPN.GN ---
Behaviors/Verbalizations/Mental Status: []Pt alert and oriented, neatly dressed and groomed. Eye contact good. Motor activity appropriate. Speech within normal limits. Affect congruent, mood euthymic and anxious. Thoughts linear, logical, no signs of hallucinations or delusions. Client Response/Progress/Benefit: [] Pt responded well to session, completed their self-reflection worksheet. Pt noted they have met with their therapist since last session and used coping skills like radical acceptance, opposite action, finding the mireles, meditation, advocating for needs, DDD, and setting boundaries. Pt also noted they completed last week?s homework and found it helpful. Pt engaged well during the discussion of the components of self-compassion. Pt connected with the benefits of self-compassion and participated in the activity of reframing a recent setback using self-compassion. Pt used self-compassion to combat negative self-talk and assisted peers in identifying examples of the three components of self-compassion.?Pt appeared to benefit from practicing self-compassion and connecting with peers. Will continue aftercare to promote mood stability and reinforce healthy coping skills.? Narrative Note: []
--- NOTE | 2025-04-26 15:49 | BH.DS_ITS ---
Discharge Summary Demographics Date of Admission:: 03/08/25 Discharge Date: 04/26/25 Presenting Problems at Admission:: At aftercare admission pt reporting significant improvement in daily functioning and decrease in anxiety and depression compared to when started IOP. Client could benefit from aftercare program to help with maintenance of skills and progress. Discharge Diagnoses:: MDD, recurrent, moderate; LAURI Reason for Discharge:: Pt has accomplished tx goals AEB ability to maintain mood stability and gains made in IOP. Pt's DSM-5 scores remain 46% lower than her IOP admission scores. Pt will transition to traditional outpatient counseling. Treatment Progress During Treatment & Response: Pt responded well and made progress in IOP aftercare as evidenced by pt's participation in group discussions and self- report of consistently applying coping skills. Pt's overall DSM-5 scores decreased by 46% from IOP admission. Pt's scores for anxiety decreased by 38% compared to original IOP scores. Client's depression at IOP admission she scored a 3/8 with 8 being severe; at aftercare discharge client noted slight increase in depression reporting a 4/8. Issues Still to be Addressed:: Client could benefit from continued reinforcement of healthy coping skills, reinforcement of maintenance plan, and continued work on boundary setting. Discharge Recommendations/Instructions:: Recommended to follow-up with psychologist and psychiatrist Pt has bi-monthly appointments set with Dr. Mcpherson (psychologist) Pt is established with Dr. Burt (psychiatrist). Discharge Handout
== END 2025-04-27 07:35 | disposition home or self-care (01) ==
LOC: BHOG 07:13
PROVIDERS: PCP Internal Medicine; Referring Provider Psychiatry & Neurology Psychiatry; Visit Provider Psychiatry & Neurology Psychiatry
DX: F33.1 Major depressive disorder, recurrent, moderate (principal); F41.1 Generalized anxiety disorder
CPT/HCPCS: 90853